=== PATIENT | female | born 1970 | race Caucasian/White ===

== ENCOUNTER → 2018-02-08 07:22 | Outpatient (CLI) | payer BC | END | disposition home or self-care (01) | LOC: D.MRI 07:22 | DX: M25.512 Pain in left shoulder (principal) ==

== ENCOUNTER → 2018-07-10 06:30 | Outpatient (CLI) | payer BC | END | disposition home or self-care (01) | LOC: D.US 06:30 | PROVIDERS: ATTEND Family Medicine | DX: K80.20 Calculus of gallbladder without cholecystitis without obstruction (principal) ==

== ENCOUNTER → 2018-07-15 14:26 | Outpatient (CLI) | payer BC ==
--- NOTE | 2018-07-19 12:17 | ST ---
PATIENT:LIONEL LAGOS MEDICAL RECORD: [id number] SEX: F LOCATION:[facility] ORDER #: ADMISSION DATE: 07/15/18 AGE OF PATIENT: 48 REFERRING PHYSICIAN: INTERPRETING PHYSICIAN: LEILA LANDRES MD DATE OF SERVICE: 07/15/2018 PROCEDURE: Treadmill stress test. Baseline ECG is normal. Exercised for 10 minutes on Elie Protocol. Maximum heart rate is 85 beats per minute, greater than 85% of max predicted. No ECG change of ischemia. No symptoms of ischemia. Normal blood pressure response to ischemia. No arrhythmias noted. Good exercise tolerance for age. TRANSINT:[id number] Voice Confirmation ID: [id number] DOCUMENT ID: [id number] LEILA LANDERS MD at 1217 CC: [id number] DICTATION DATE: 07/16/18 1459 DIVE SUPERINTENDENT: 07/16/18 1603 DEP CLI 07/15/18 [place] [id number] [place] [address]
== END | disposition home or self-care (01) ==
LOC: D.HCCARDIO 14:26
PROVIDERS: ATTEND Internal Medicine Interventional Cardiology
DX: R07.9 Chest pain, unspecified (principal)

== ENCOUNTER → 2018-09-25 17:11 | Outpatient (CLI) | payer BC | END | disposition home or self-care (01) | LOC: D.RAD 17:11 | PROVIDERS: ATTEND Family Medicine | DX: M25.512 Pain in left shoulder (principal) ==

== ENCOUNTER 2019-03-11 09:03 | Day surgery (SDC) | payer BC ==
[~2019-03-11] VITALS: Ht 154.9 cm; Wt 93.0 kg
[~2019-03-11 09:03] MED LIST: LISINOPRIL10 MG PO
[2019-03-11 09:25] LABS: HEMATOCRIT 41.4 % (36.0-48.0); HEMOGLOBIN 13.8 g/dL (12-16); MCH 30.3 pg (26.0-34.0); MCHC 33.3 g/dL (31.0-37.0); MEAN PLATELET VOLUME 10.2 fL (7.4-10.4); RBC 4.55 10x6/uL (4.00-5.40); RDW 12.5 % (11.5-14.5); WBC 7.2 10x3/uL (4.8-10.8)
[2019-03-11 10:07] LABS: CALC OSMOLALITY 278 mosm/kg (275-300); CALCIUM 9.3 mg/dL (8.5-10.1); CARBON DIOXIDE 31.2 mmol/L (21.0-32.0); CHLORIDE - SERUM 104 mmol/L (98-107); CREATININE - SERUM 0.8 mg/dL (0.6-1.3); GLUCOSE 105 mg/dL (74-106); POTASSIUM - SERUM 4.4 mmol/L (3.5-5.1); SODIUM 139 mmol/L (136-145); UREA NITROGEN 14 mg/dL (7-18); eGFR NON AFRICAN AMERICAN 81 mL/min (90-120)
[2019-03-11 10:29] VITALS: BP 128/78; Ht 154.9 cm; Wt 93.0 kg
[2019-03-11 11:34] LABS: HCG SERUM NEGATIVE (NEGATIVE)
[2019-03-11] MEDS ORDERED: HYDROCODON-ACE1 EA10 PO (11:58)
--- NOTE | 2019-03-11 13:32 | NUR ---
1308 ICE PACK APPLIED TO ABDOMEN ORDERED.
--- NOTE | 2019-03-11 14:39 | NUR ---
1403 PT UP TO BR WITH MINIMAL ASSISTANCE. VOIDED WITHOUT DIFFICULTY. ASSISTED PT BACK TO BED. NO C/O DIZZINESS. 1410 IV DC'D. CATHETER TIP INTACT. PRESSURE HELD UNTIL BLEEDING CEASED. BANDAID APPLIED. 1420 DISCHARGE INSTRUCTIONS GIVEN TO PT/. BOTH VERBALIZE UNDERSTANDING OF INSTRUCTIONS. 1430 PT DISCHARGED HOME VIA WC AND ACCOMPANIED BY . NO BLEEDING AT SURGICAL SITES AFTER UP AND WALKING IN ROOM.
--- NOTE | 2019-03-18 14:22 | OP ---
PATIENT NAME: LIONEL LAGOS MEDICAL RECORD: [id number] :72 LOCATION:[facility] ADMISSION DATE: SURGEON: JOHN ROMO MD DATE OF OPERATION: 03/11/2019 PREOPERATIVE DIAGNOSES: 1. Gallstones. 2. Hypertension. POSTOPERATIVE DIAGNOSES: 1. Gallstones. 2. Hypertension. PROCEDURE: Laparoscopic cholecystectomy. SURGEON: John Romo MD REPORT OF PROCEDURE: The patient's abdomen was prepped and draped in sterile fashion. A cutdown was made on the superior aspect of the umbilicus, 0 Vicryls were placed in the fascia bilaterally and the fascia was incised with a 15-blade. I then bluntly entered the peritoneal cavity and placed a 12-mm Ramsey port. Under direct visualization, a 5 mm trocar was placed in the epigastrium and 2 more 5-mm trocars were placed in the right subcostal region. The gallbladder was grasped and elevated. The cystic artery and cystic duct were dissected free and these were clipped proximally and distally and ligated in standard fashion. The gallbladder was taken off the liver bed using electrocautery and placed into the right upper quadrant. Any bleeding from the liver bed was then treated with electrocautery. At this point, the ports and insufflation were then removed and the gallbladder was taken out through the umbilicus. The umbilical fascia was closed with interrupted 0 Vicryls times 3. The wounds were then irrigated out with normal saline and infused with 10 mL of 0.25% Marcaine with epinephrine. The skin incisions were all closed with subcutaneous 5-0 Monocryl and dressed appropriately. COMPLICATIONS: None. CONDITION: Stable. ANESTHESIA: General endotracheal and local. BLOOD LOSS: Minimal. TRANSINT:[id number] Voice Confirmation ID: [id number] DOCUMENT ID: [id number] JOHN ROMO MD at 1422 CC: CHEIKH PINTO DO [id number] DICTATION DATE: 03/11/19 1204 [employer] COMMUNICATIONS MANAGER: 03/11/19 1220 [facility] 03/11/19 [place] [id number] [place] [id number]
== END 2019-03-11 14:30 | disposition home or self-care (01) ==
LOC: D.OPS 09:03
PROVIDERS: Anesthesiology; ATTEND Surgery
DX: K80.80 Other cholelithiasis without obstruction (principal); I10 Essential (primary) hypertension